=== PATIENT | female | born 2000 | race African-American/Black ===

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

== ENCOUNTER 2022-12-25 16:53 | Emergency (ER) | payer MEDICAID ==
[~2022-12-25] VITALS: Ht 157.5 cm; Wt 59.6 kg
[2022-12-25 18:05] LABS: Urine Bacteria NONE SEEN /hpf (None Seen); Urine Blood Negative /uL (Negative); Urine Clarity HAZY (Clear); Urine Color Yellow (Yellow); Urine Mucus FEW (None Seen); Urine Protein, UAD TRACE (Negative); Urine Specific Gravity 1.031 (1.001-1.035); Urine Urobilinogen Normal (Negative); Urine WBC 1 /hpf (0 - 5)
[2022-12-25 18:54] VITALS: BP 125/63; PULSE 65; RESP 18; TEMP 98.4; O2SAT 97
== END 2022-12-25 19:11 | disposition home or self-care (01) ==
LOC: ER 16:53
DX: M54.50 Low back pain, unspecified (principal)
CPT/HCPCS: 81001; 81025

== ENCOUNTER 2023-06-16 17:01 | Emergency (ER) | payer MEDICAID ==
[~2023-06-16] VITALS: Ht 160 cm; Wt 58.7 kg
[2023-06-16] MEDS ORDERED: ACET500T58 PO (20:37)
[2023-06-16 21:11] VITALS: BP 141/58; PULSE 70; RESP 16; TEMP 98.6
[2023-06-16 21:14] VITALS: O2SAT 100
[2023-06-16 21:20] LABS: Urine Bacteria FEW /hpf (None Seen); Urine Blood 3+ /uL (Negative); Urine Clarity Clear (Clear); Urine Color Yellow (Yellow); Urine Mucus FEW (None Seen); Urine Protein, UAD TRACE (Negative); Urine Specific Gravity 1.017 (1.001-1.035); Urine Urobilinogen Normal (Negative); Urine WBC 4 /hpf (0 - 5)
== END 2023-06-16 21:55 | disposition home or self-care (01) ==
LOC: ER 17:01
DX: G44.209 Tension-type headache, unspecified, not intractable (principal); R11.2 Nausea with vomiting, unspecified; Z32.02 Encounter for pregnancy test, result negative
CPT/HCPCS: 81001; 81025